=== PATIENT | female | born 1975 | race African-American/Black ===

== ENCOUNTER 2017-03-24 12:38 | Emergency (ER) | payer MEDICAID ==
[~2017-03-24] VITALS: Ht 167.6 cm; Wt 127.7 kg
[~2017-03-24 12:38] MED LIST: ALBU8.5H5 INH; AMOX1TAB64 PO; DOCO200C3 PO; LABE100T3 PO; LOSA1TAB18 PO; METH4TAB2 PO; PREN1TAB56 PO
[2017-03-24 13:05] LABS: HEMATOCRIT 41.4 % (34.6-47.8); HEMOGLOBIN 13.4 g/dL (11.7-16.4); WHITE BLOOD COUNT 9.4 x10^3/uL (3.4-10)
[2017-03-24 13:16] LABS: BLOOD UREA NITROGEN 7 mg/dL (7-18)
[2017-03-24] MEDS ORDERED: AMLO5TAB2 PO (14:43)
[2017-03-24 15:04] VITALS: BP 156/85
== END 2017-03-24 15:06 | disposition home or self-care (01) ==
LOC: ED 15:00
DX: R20.2 Paresthesia of skin (principal); I10 Essential (primary) hypertension
CPT/HCPCS: 36415; 70450; 80048; 82040; 85025; 99285

== ENCOUNTER 2018-01-10 13:43 | Emergency (ER) | payer MEDICAID ==
[~2018-01-10] VITALS: Ht 167.6 cm; Wt 122.1 kg
[~2018-01-10 13:43] MED LIST changes: +AMLO5TAB2 PO; -LOSA1TAB18 PO; +LOSA1TAB25 PO
[2018-01-10 13:56] VITALS: BP 136/86
== END 2018-01-10 15:32 | disposition home or self-care (01) ==
LOC: ED 15:00
DX: H65.91 Unspecified nonsuppurative otitis media, right ear (principal); L04.0 Acute lymphadenitis of face, head and neck; J30.2 Other seasonal allergic rhinitis; E04.9 Nontoxic goiter, unspecified; E11.9 Type 2 diabetes mellitus without complications; I10 Essential (primary) hypertension; F17.200 Nicotine dependence, unspecified, uncomplicated
CPT/HCPCS: 76536; 99284

== ENCOUNTER 2018-02-09 17:32 | Emergency (ER) | payer MEDICAID ==
[~2018-02-09] VITALS: Ht 167.6 cm; Wt 122.1 kg
[2018-02-09 17:34] VITALS: BP 189/129
[2018-02-09] MEDS ORDERED: DIAZEPAM 5 MG TABLET PO STA (17:54)
[2018-02-09] MEDS ORDERED: DIAZEPAM 5 MG TABLET ONE (17:56)
[2018-02-09] MEDS ORDERED: KETOROLAC 30 MG/1 ML ONE (17:56)
[2018-02-09] MEDS ORDERED: KETOROLAC 30 MG/1 ML IM ONE (18:00)
== END 2018-02-09 18:44 | disposition home or self-care (01) ==
LOC: ED 18:05
DX: M54.12 Radiculopathy, cervical region (principal); I10 Essential (primary) hypertension; G44.219 Episodic tension-type headache, not intractable; H92.01 Otalgia, right ear; F17.200 Nicotine dependence, unspecified, uncomplicated; E11.9 Type 2 diabetes mellitus without complications; Z88.5 Allergy status to narcotic agent; Z91.14 Patient's other noncompliance with medication regimen; Z72.9 Problem related to lifestyle, unspecified
CPT/HCPCS: 72050; 93005; 99284

== ENCOUNTER 2018-03-18 13:05 | Emergency (ER) | payer MEDICAID ==
[~2018-03-18] VITALS: Ht 167.6 cm; Wt 121.5 kg
[~2018-03-18 13:05] MED LIST changes: -LABE100T3 PO; +LABE100T6 PO
[2018-03-18] MEDS ORDERED: ASPI-650 PO (13:14)
[2018-03-18 13:45] LABS: BASOPHILS # (AUTO) 0.04 x10^3/uL (0-0.1); BASOPHILS % (AUTO) 0 % (0-1); EOSINOPHILS # (AUTO) 0.22 x10^3/uL (0-0.4); EOSINOPHILS % (AUTO) 2 % (1-7); LYMPHOCYTES % (AUTO) 31 % (22-44); MD NO; MEAN CORPUSCULAR HEMOGLOBIN 26.7 pg (27.0-34.8); MEAN PLATELET VOLUME 11.8 fL (7.4-10.4); MONOCYTES # (AUTO) 0.78 x10^3/uL (0.2-0.8); MONOCYTES % (AUTO) 8 % (2-9); NEUTROPHILS # (AUTO) 5.98 x10^3/uL (1.8-6.8); NEUTROPHILS % (AUTO) 59 % (42-75); PLATELET COUNT 278 x10^3/uL (130-400); RED BLOOD COUNT 5.06 x10^6/uL (3.82-5.3); RED CELL DISTRIBUTION WIDTH 14.9 % (9.6-15.2)
[2018-03-18 13:52] LABS: ALBUMIN 3.6 g/dL (3.4-5.0); ANION GAP 6 mmol/L (5-15); CALCIUM 8.4 mg/dL (8.5-10.1); CHLORIDE 110 mmol/L (98-107); CREATININE 0.77 mg/dL (0.55-1.02)
[2018-03-18 14:06] LABS: MICROSCOPIC NOT IND
[2018-03-18 14:11] LABS: CULTURE INDICATED? NO
[2018-03-18] MEDS ORDERED: POTASSIUM CHLORIDE 20 MEQ PACKET ONE ×2 (14:23→14:32)
[2018-03-18] MEDS ORDERED: POTASSIUM CHLORIDE 10% 40 MEQ/30 ML UDC PO ONE (14:30)
[2018-03-18 14:36] VITALS: BP 132/84
== END 2018-03-18 15:13 | disposition home or self-care (01) ==
LOC: ED 14:55
DX: R55 Syncope and collapse (principal); H92.01 Otalgia, right ear; E87.6 Hypokalemia; R51 Headache; I10 Essential (primary) hypertension; E11.9 Type 2 diabetes mellitus without complications; F17.200 Nicotine dependence, unspecified, uncomplicated
CPT/HCPCS: 36415; 70450; 80048; 81003; 82040; 85025; 93005; 99285

== ENCOUNTER 2018-04-24 10:08 | Emergency (ER) | payer MEDICAID ==
[~2018-04-24] VITALS: Ht 170.2 cm; Wt 122.3 kg
[~2018-04-24 10:08] MED LIST changes: -AMLO5TAB2 PO; +AMLO5TAB7 PO; +ASPI-650 PO
[2018-04-24 10:09] VITALS: BP 166/84
[2018-04-24 10:56] LABS: BASOPHILS # (AUTO) 0.04 x10^3/uL (0-0.1); BASOPHILS % (AUTO) 1 % (0-1); EOSINOPHILS # (AUTO) 0.21 x10^3/uL (0-0.4); EOSINOPHILS % (AUTO) 3 % (1-7); LYMPHOCYTES % (AUTO) 29 % (22-44); MD NO; MEAN CORPUSCULAR HGB CONC 33.1 g/dL (32.4-35.8); MEAN CORPUSCULAR VOLUME 81.8 fL (80-100); MEAN PLATELET VOLUME 10.9 fL (7.4-10.4); MONOCYTES % (AUTO) 6 % (2-9); NEUTROPHILS # (AUTO) 5.31 x10^3/uL (1.8-6.8); NEUTROPHILS % (AUTO) 62 % (42-75); PLATELET COUNT 273 x10^3/uL (130-400); RED BLOOD COUNT 4.95 x10^6/uL (3.82-5.3); RED CELL DISTRIBUTION WIDTH 14.7 % (9.6-15.2)
[2018-04-24 11:07] LABS: ANION GAP 7 mmol/L (5-15); C-REACTIVE PROTEIN, QUANT 0.14 mg/dL (0.02-0.49); CALCIUM 8.5 mg/dL (8.5-10.1); CHLORIDE 111 mmol/L (98-107); CREATININE 0.68 mg/dL (0.55-1.02)
[2018-04-24 11:34] LABS: HCT (SEDRATE) 40.5 % (34.6-47.8)
== END 2018-04-24 13:04 | disposition home or self-care (01) ==
LOC: ED 12:35
DX: G89.29 Other chronic pain (principal); H92.01 Otalgia, right ear; M54.2 Cervicalgia; I10 Essential (primary) hypertension; F17.200 Nicotine dependence, unspecified, uncomplicated
CPT/HCPCS: 36415; 80048; 85025; 85651; 86140; 93005; 99285

== ENCOUNTER → 2018-04-29 | Outpatient (CLI) | payer MEDICAID | END | disposition home or self-care (01) | LOC: CVU 10:39 | PROVIDERS: ATTEND Internal Medicine Cardiovascular Disease | DX: I11.9 Hypertensive heart disease without heart failure (principal); F17.200 Nicotine dependence, unspecified, uncomplicated | CPT/HCPCS: 93306 ==

== ENCOUNTER → 2018-08-19 | Outpatient (CLI) | payer MEDICAID ==
[~2018-08-19] MED LIST changes: +AMLO-150 PO; -AMLO5TAB7 PO; +GADOBUTROL 10 MMOL/10 ML PFS ONE
== END | disposition home or self-care (01) ==
LOC: CFH 12:42
PROVIDERS: ATTEND Psychiatry & Neurology Neurology
DX: M48.02 Spinal stenosis, cervical region (principal); M50.20 Other cervical disc displacement, unspecified cervical region
CPT/HCPCS: 72141; 82565; A9585

== ENCOUNTER → 2019-01-30 | Outpatient (CLI) | payer MEDICAID ==
[~2019-01-30] MED LIST changes: -GADOBUTROL 10 MMOL/10 ML PFS ONE
== END | disposition home or self-care (01) ==
LOC: CFH 09:24
PROVIDERS: ATTEND Nurse Practitioner Family
DX: Z12.31 Encounter for screening mammogram for malignant neoplasm of breast (principal); N63.20 Unspecified lump in the left breast, unspecified quadrant
CPT/HCPCS: 77067

== ENCOUNTER 2019-02-13 09:03 | Outpatient (CLI) | payer MEDICAID | END 2019-02-13 23:59 | disposition home or self-care (01) | LOC: CFH 09:03 | PROVIDERS: ATTEND Nurse Practitioner Family | DX: R92.8 Other abnormal and inconclusive findings on diagnostic imaging of breast (principal) | CPT/HCPCS: 76642; 77065; G0279 ==

== ENCOUNTER 2019-06-21 17:24 | Emergency (ER) | payer MEDICAID ==
[~2019-06-21] VITALS: Ht 167.6 cm; Wt 124.5 kg
--- NOTE | 2019-06-21 18:20 | NUR ---
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 WAS TOLD IT WOULD BE A COUPLE OF MINUTES. CALLED PT FOR ROOM, WAS TOLD "SHE JUST WENT TO THE BR"
--- NOTE | 2019-06-21 18:25 | NUR ---
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
--- NOTE | 2019-06-21 18:25 | NUR ---
PT AMBULATORY WITH STEADY GAIT FROM LOBBY TO ROOM NOW. CHANGING INTO GOWN.
--- NOTE | 2019-06-21 18:32 | NUR ---
N/T, LEMUS, NAUSEA, LIGHTHEADEDNESS SINCE EPIDURAL ON SATURDAY AFTERNOON. RECEIVED EPIDURAL FOR NECK PAIN. [facility]LTY [facility]. NADN. VSS. ALL EXTREMITIES MOVE EQUALLY WITH 5/5 STRENGTH. HAS TAKEN NO MEDS FOR PAIN. ONLY TAKING BP MEDS AT HOME.
[2019-06-21 18:36] VITALS: BP 145/74
--- NOTE | 2019-06-21 18:50 | NUR ---
REPORT GIVEN TO JEANETTE CUNNINGHAM.
--- NOTE | 2019-06-21 19:12 | NUR ---
Assumed care of pt
== END 2019-06-21 20:02 | disposition home or self-care (01) ==
LOC: ED 19:50
DX: R20.2 Paresthesia of skin (principal); T88.59XA Other complications of anesthesia, initial encounter; R51 Headache; I10 Essential (primary) hypertension; E11.9 Type 2 diabetes mellitus without complications
CPT/HCPCS: 99281

== ENCOUNTER 2019-07-01 13:51 | Outpatient (CLI) | payer MEDICAID | END 2019-07-01 23:59 | disposition home or self-care (01) | LOC: CFH 13:51 | PROVIDERS: ATTEND Pain Medicine Pain Medicine | DX: M47.812 Spondylosis without myelopathy or radiculopathy, cervical region (principal); M48.02 Spinal stenosis, cervical region; M50.223 Other cervical disc displacement at C6-C7 level; F17.200 Nicotine dependence, unspecified, uncomplicated | CPT/HCPCS: 72141 ==

== ENCOUNTER 2019-08-03 13:59 | Outpatient (CLI) | payer MEDICAID | END 2019-08-03 23:59 | disposition home or self-care (01) | LOC: CFH 13:59 | PROVIDERS: ATTEND Neurological Surgery | DX: M50.321 Other cervical disc degeneration at C4-C5 level (principal); M48.02 Spinal stenosis, cervical region | CPT/HCPCS: 72052 ==

== ENCOUNTER → 2019-09-01 | Outpatient (CLI) | payer MEDICAID | END | disposition home or self-care (01) | LOC: CFH 09:28 | PROVIDERS: ATTEND Nurse Practitioner Family | DX: M19.041 Primary osteoarthritis, right hand (principal); M25.441 Effusion, right hand; M79.89 Other specified soft tissue disorders ==

== ENCOUNTER → 2019-09-11 | Outpatient (CLI) | payer MEDICAID | END | disposition home or self-care (01) | LOC: CFH 09:44 | PROVIDERS: ATTEND Neurological Surgery | DX: M43.22 Fusion of spine, cervical region (principal); M50.00 Cervical disc disorder with myelopathy, unspecified cervical region | CPT/HCPCS: 72040 ==

== ENCOUNTER → 2020-02-29 | Outpatient (CLI) | payer MEDICAID | END | disposition home or self-care (01) | LOC: CFH 09:05 | PROVIDERS: ATTEND Neurological Surgery | DX: M47.812 Spondylosis without myelopathy or radiculopathy, cervical region (principal); M54.2 Cervicalgia | CPT/HCPCS: 72040 ==